=== PATIENT | male | born 1985 | race Caucasian/White ===

== ENCOUNTER 2017-03-14 20:17 | Emergency (ER) | payer MEDICARE, MEDICAID ==
[~2017-03-14] VITALS: Ht 175.3 cm; Wt 181.8 kg
[~2017-03-14 20:17] MED LIST: COUMADIN; SULF1TAB3; VIC
[2017-03-14] MEDS: KETOROLAC 60MG/2ML VIAL IM STA (21:37)
[2017-03-14 22:38] LABS: BASOPHILS % 0.7 % (0.0-2.0); EOSINOPHILS % 3.6 % (0.0-5.0); HEMATOCRIT. 42.4 % (42.0-52.0); HEMOGLOBIN. 14.2 g/dL (14.0-18.0); LYMPHOCYTES % 18.3 % (20.0-50.0); MEAN CORPUSCULAR VOLUME 83.5 fL (80.0-94.0); MEAN PLATELET VOLUME 8.1 fl (7.4-10.4); MONOCYTES % 6.9 % (2.0-8.0); NEUTROPHILS % 70.5 % (40.0-76.0); PLATELET 225 x1000/uL (130-400); RED BLOOD CELL COUNT 5.07 mill/uL (4.7-6.1)
[2017-03-14 22:42] LABS: INR 2.2; PROTHROMBIN TIME 22.7 sec
[2017-03-14 22:48] LABS: CARBON DIOXIDE 31 mEq/L (21-32); CHLORIDE 102 mEq/L (98-107)
[2017-03-14] MEDS: CEPHALEXIN 500MG CAPSULE PO ONE (23:00)
[2017-03-14 23:51] VITALS: BP 159/89
== END 2017-03-14 23:56 | disposition home or self-care (01) ==
LOC: ER 22:09
DX: L03.116 Cellulitis of left lower limb (principal); I10 Essential (primary) hypertension; E78.00 Pure hypercholesterolemia, unspecified; F12.10 Cannabis abuse, uncomplicated
CPT/HCPCS: 36415; 80053; 83605; 85025; 85610; 87040; 96372; 99284; J1885

== ENCOUNTER 2017-04-09 21:45 | Inpatient (IN) | payer MEDICAID, MEDICARE ==
[~2017-04-09] VITALS: Ht 175.3 cm; Wt 183.3 kg
[2017-04-09] MEDS ORDERED: SODIUM CHLORIDE 0.9% 1,000 ML IV ONE (23:26)
[2017-04-09] MEDS ORDERED: MORPHINE SULFATE 4 MG/ML CPJ (NOT FOR IM USE) IV STA (23:26)
[2017-04-09] MEDS ORDERED: ASPIRIN 81MG TABLET PO ONE (23:30)
[2017-04-09] MEDS ORDERED: VANCOMYCIN 1 G PREMIX 200 ML IV ONE (23:45)
[2017-04-09] MEDS ORDERED: LEVOFLOXACIN 750MG PREMIX 150 ML IV ONE (23:45)
[2017-04-10 00:33] LABS: EOSINOPHILS % 3.8 % (0.0-5.0); HEMATOCRIT. 39.5 % (42.0-52.0); HEMOGLOBIN. 13.3 g/dL (14.0-18.0); LYMPHOCYTES % 15.7 % (20.0-50.0); MEAN CORPUSCULAR HEMOGLOBIN 27.7 pg (28.0-32.0); MEAN CORPUSCULAR VOLUME 82.1 fL (80.0-94.0); MEAN PLATELET VOLUME 9.1 fl (7.4-10.4); MONOCYTES % 10.7 % (2.0-8.0); NEUTROPHILS % 68.8 % (40.0-76.0); PLATELET 161 x1000/uL (130-400); RED BLOOD CELL COUNT 4.81 mill/uL (4.7-6.1); RED CELL DISTRIBUTION WIDTH 14.6 % (11.6-14.6)
[2017-04-10 00:45] LABS: CHLORIDE 102 mEq/L (98-107)
[2017-04-10 00:56] LABS: CARBON DIOXIDE 27 mEq/L (21-32); ETHANOL BLOOD < 10 mg/dL
[2017-04-10 01:10] LABS: D-DIMER 0.6 mg/L FEU (<0.50); INR 3.8; PARTIAL THROMBOPLASTIN TIME 67.1 sec (23.4-31.0); PROTHROMBIN TIME 39.2 sec (9.4-11.6)
[2017-04-10] MEDS ORDERED: POTASSIUM BICARB/CIT ACID 25 MEQ TABLET.EFF PO ONE (02:00)
[2017-04-10] MEDS ORDERED: POTASSIUM BICARB/CIT ACID 25 MEQ TABLET.EFF PO SCH (03:15)
[2017-04-10 04:00] VITALS: BP 121/76
[2017-04-10] MEDS ORDERED: AMLO10TA80 PO (04:05)
[2017-04-10] MEDS ORDERED: LOVA40TA73 PO (04:05)
[2017-04-10] MEDS ORDERED: HYDR25TA PO (04:05)
[2017-04-10 08:00] VITALS: BP 115/58
[2017-04-10] MEDS ORDERED: ONDANSETRON HCL 4MG/2ML VIAL IV PRN (08:30)
[2017-04-10] MEDS ORDERED: ACETAMINOPHEN 325MG TABLET PO PRN (08:30)
[2017-04-10] MEDS: OMEPRAZOLE 20MG CAPSULE EXTENDED RELEASE PO SCH ×2 (09:00→20:29)
[2017-04-10] MEDS: DOCUSATE SODIUM 100MG CAPSULE PO SCH ×2 (09:00→17:00)
[2017-04-10] MEDS ORDERED: MAGNESIUM CITRATE 300ML SOLUTION PO SCH (10:00)
[2017-04-10] MEDS ORDERED: VANCOMYCIN 1500MG in DEXTROSE 5% WATER 250ML IV SCH (10:00)
[2017-04-10 10:27] LABS: BASOPHILS % 1.1 % (0.0-2.0); EOSINOPHILS % 3.1 % (0.0-5.0); HEMATOCRIT. 41.7 % (42.0-52.0); HEMOGLOBIN. 13.9 g/dL (14.0-18.0); LYMPHOCYTES % 15.3 % (20.0-50.0); MEAN CORPUSCULAR HEMOGLOBIN 27.5 pg (28.0-32.0); MEAN CORPUSCULAR VOLUME 82.8 fL (80.0-94.0); MEAN PLATELET VOLUME 8.4 fl (7.4-10.4); MONOCYTES % 6.8 % (2.0-8.0); NEUTROPHILS % 73.7 % (40.0-76.0); PLATELET 174 x1000/uL (130-400); RED BLOOD CELL COUNT 5.03 mill/uL (4.7-6.1); RED CELL DISTRIBUTION WIDTH 14.5 % (11.6-14.6)
[2017-04-10 11:00] LABS: CARBON DIOXIDE 29 mEq/L (21-32); CHLORIDE 102 mEq/L (98-107); HDL CHOLESTEROL 35 mg/dL (40-59); LDL CHOLESTEROL 72 mg/dL (5-100); PHOSPHORUS 1.6 mg/dL (2.5-4.9)
[2017-04-10 12:00] VITALS: BP 135/83
[2017-04-10 16:00] VITALS: BP 126/71
[2017-04-10 17:05] LABS: CLARITY URINE CLEAR (CLEAR); COLOR URINE YELLOW (YELLOW); GLUCOSE URINE NEGATIVE (NEGATIVE); KETONES URINE NEGATIVE (NEGATIVE); LEUKOCYTE ESTERASE URINE NEGATIVE (NEGATIVE); NITRITE URINE NEGATIVE (NEGATIVE); OCCULT BLOOD URINE NEGATIVE (NEGATIVE); PROTEIN URINE NEGATIVE (NEGATIVE); SPECIFIC GRAVITY URINE 1.021 (1.005-1.030); UROBILINOGEN URINE 0.2 E.U./dL (0.2-1.0)
[2017-04-10 17:17] LABS: *AMPHETAMINES SCREEN URINE NEGATIVE (NEGATIVE); *BARBITURATES SCREEN URINE NEGATIVE (NEGATIVE); *BENZODIAZEPINES SCREEN URINE NEGATIVE (NEGATIVE); *COCAINE SCREEN URINE NEGATIVE (NEGATIVE); CANNABINOID URINE SCREEN PRESUMTIVE POSITIVE (NEGATIVE); METHADONE URINE SCREEN NEGATIVE (NEGATIVE); OPIATES URINE SCREEN PRESUMTIVE POSITIVE (NEGATIVE); PHENCYCLIDINE URINE SCREEN NEGATIVE (NEGATIVE)
[2017-04-10] MEDS: LEVOFLOXACIN 500MG PREMIX 100 ML IV SCH (17:44)
[2017-04-10] MEDS: VANCOMYCIN 1 G PREMIX 200 ML IV SCH ×2 (17:44→21:27)
[2017-04-10 20:00] VITALS: BP 144/81
[2017-04-11] VITALS: BP 139/79
[2017-04-11] MEDS: HYDROCODONE/ACETAMINOPHEN 5/325MG TABLET PO PRN ×2 (00:01→20:48)
[2017-04-11 04:00] VITALS: BP 123/74
[2017-04-11] MEDS: VANCOMYCIN 1 G PREMIX 200 ML IV SCH ×3 (05:22→21:08)
[2017-04-11] MEDS: OMEPRAZOLE 20MG CAPSULE EXTENDED RELEASE PO SCH ×2 (06:24→20:09)
[2017-04-11 08:00] VITALS: BP 139/90
[2017-04-11] MEDS: DOCUSATE SODIUM 100MG CAPSULE PO SCH ×2 (08:38→16:47)
[2017-04-11] MEDS: HYDROCHLOROTHIAZIDE 25MG TABLET PO SCH (08:47)
[2017-04-11] MEDS: AMLODIPINE 10MG TABLET PO SCH (08:48)
[2017-04-11] MEDS: LEVOFLOXACIN 500MG PREMIX 100 ML IV SCH (11:46)
[2017-04-11 12:00] VITALS: BP 137/83
[2017-04-11 12:22] LABS: CARBON DIOXIDE 29 mEq/L (21-32); CHLORIDE 107 mEq/L (98-107); VANCOMYCIN TROUGH 16.8 ug/mL (5.0-10.0)
[2017-04-11 16:00] VITALS: BP 144/88
[2017-04-11 20:00] VITALS: BP 136/78
[2017-04-12] VITALS: BP 132/69
[2017-04-12 04:00] VITALS: BP 122/60
[2017-04-12 06:22] LABS: EOSINOPHILS % 4.1 % (0.0-5.0); HEMATOCRIT. 38.8 % (42.0-52.0); HEMOGLOBIN. 13.1 g/dL (14.0-18.0); LYMPHOCYTES % 21.3 % (20.0-50.0); MEAN CORPUSCULAR HEMOGLOBIN 27.9 pg (28.0-32.0); MEAN CORPUSCULAR VOLUME 82.7 fL (80.0-94.0); MEAN PLATELET VOLUME 8.8 fl (7.4-10.4); MONOCYTES % 11.2 % (2.0-8.0); NEUTROPHILS % 62.4 % (40.0-76.0); PLATELET 188 x1000/uL (130-400); RED BLOOD CELL COUNT 4.69 mill/uL (4.7-6.1); RED CELL DISTRIBUTION WIDTH 14.7 % (11.6-14.6)
[2017-04-12] MEDS: VANCOMYCIN 1 G PREMIX 200 ML IV SCH (06:31)
[2017-04-12] MEDS: OMEPRAZOLE 20MG CAPSULE EXTENDED RELEASE PO SCH (06:31)
[2017-04-12 06:47] LABS: CHLORIDE 104 mEq/L (98-107)
[2017-04-12 06:54] LABS: CARBON DIOXIDE 28 mEq/L (21-32); PHOSPHORUS 3.5 mg/dL (2.5-4.9)
[2017-04-12 07:53] LABS: CLARITY URINE CLEAR (CLEAR); COLOR URINE YELLOW (YELLOW); GLUCOSE URINE NEGATIVE (NEGATIVE); KETONES URINE NEGATIVE (NEGATIVE); LEUKOCYTE ESTERASE URINE NEGATIVE (NEGATIVE); NITRITE URINE NEGATIVE (NEGATIVE); OCCULT BLOOD URINE NEGATIVE (NEGATIVE); PROTEIN URINE NEGATIVE (NEGATIVE); SPECIFIC GRAVITY URINE 1.015 (1.005-1.030); UROBILINOGEN URINE 0.2 E.U./dL (0.2-1.0)
[2017-04-12 08:00] VITALS: BP 136/94
[2017-04-12] MEDS: DOCUSATE SODIUM 100MG CAPSULE PO SCH (09:00)
[2017-04-12] MEDS: HYDROCHLOROTHIAZIDE 25MG TABLET PO SCH (09:01)
[2017-04-12] MEDS: HYDROCODONE/ACETAMINOPHEN 5/325MG TABLET PO PRN (09:02)
[2017-04-12] MEDS: AMLODIPINE 10MG TABLET PO SCH (09:02)
[2017-04-12 12:00] VITALS: BP 150/89
[2017-04-12] MEDS: LEVOFLOXACIN 500MG PREMIX 100 ML IV SCH (12:12)
[2017-04-12 12:48] VITALS: BP 150/89
== END 2017-04-12 14:00 | disposition home or self-care (01) | DRG 603 ==
LOC: ER 21:45 → 6EST 04-10 01:58 → ENRESERV 04-10 02:33
PROVIDERS: ADMIT Internal Medicine; ATTEND Internal Medicine
DX: L03.116 Cellulitis of left lower limb (principal); Z68.43 Body mass index [BMI] 50.0-59.9, adult; I10 Essential (primary) hypertension; E66.01 Morbid (severe) obesity due to excess calories; I87.2 Venous insufficiency (chronic) (peripheral); L03.115 Cellulitis of right lower limb; E78.00 Pure hypercholesterolemia, unspecified; E78.5 Hyperlipidemia, unspecified; Z82.49 Family history of ischemic heart disease and other diseases of the circulatory system; Z86.718 Personal history of other venous thrombosis and embolism; Z79.1 Long term (current) use of non-steroidal anti-inflammatories (NSAID); Z79.899 Other long term (current) drug therapy
CPT/HCPCS: 36415; 71010; 80048; 80053; 80061; 80202; 80305; 81003; 83605; 83735; 83880; 84100; 84443; 84550; 85025; 85379; 85610; 85651; 85730; 87040; 87086; 93005; 93923; 93970; 96365; 96366; 96368; 96375; 97162; 97166; 99285; G0482; J1956; J2270; J3370; J7030; J7040; J7060

== ENCOUNTER 2024-04-15 15:37 | Emergency (ER) | payer MEDICARE, MEDICAID ==
[~2024-04-15] VITALS: Ht 185.4 cm; Wt 100.0 kg
[~2024-04-15 15:37] MED LIST changes: +AMLO10TA80 PO; +HYDR25TA PO; +LOVA40TA73 PO
[2024-04-15 15:47] VITALS: O2SAT 100
[2024-04-15] MEDS ORDERED: LIDOCAINE HCL 1% 20ML VIAL INFIL ONE (16:00)
[2024-04-15] MEDS: ONDANSETRON HCL 4MG/2ML INJ IM ONE (16:36)
[2024-04-15] MEDS: MORPHINE SULFATE 10 MG/ML INJ (NOT FOR IM USE) IV ONE (16:37)
[2024-04-15] MEDS: SODIUM CHLORIDE 0.9% 1,000 ML IV ONE (16:38)
[2024-04-15 16:49] LABS: CARBON DIOXIDE 25 mEq/L (21-32); CHLORIDE 106 mEq/L (98-107); POTASSIUM 3.5 mEq/L (3.5-5.1); SODIUM 138 mEq/L (136-145)
[2024-04-15 16:50] LABS: BASOPHILS % 0.9 % (0.0-2.0); EOSINOPHILS % 2.1 % (0.0-5.0); HEMATOCRIT. 40.1 % (42.0-52.0); HEMOGLOBIN. 13.5 g/dL (14.0-18.0); LYMPHOCYTES % 18.8 % (20.0-50.0); MEAN CORPUSCULAR HEMOGLOBIN 29.3 pg (28.0-32.0); MEAN CORPUSCULAR HGB CONC 33.7 g/dL (31.0-37.0); MEAN CORPUSCULAR VOLUME 87.1 fL (80.0-94.0); MEAN PLATELET VOLUME 8.4 fl (7.4-10.4); MONOCYTES % 7.3 % (2.0-8.0); NEUTROPHILS % 70.9 % (40.0-76.0); PLATELET 230 x1000/uL (130-400); RED CELL DISTRIBUTION WIDTH 14.3 % (11.6-14.6); WHITE BLOOD COUNT 8.4 x1000/uL (4.5-11.0)
[2024-04-15 16:55] LABS: CREATININE 0.9 mg/dL (0.6-1.3); GLUCOSE 97 mg/dL (70-105); UREA NITROGEN BLOOD 7 mg/dL (9-23)
[2024-04-15 16:59] LABS: INR 3.9; PARTIAL THROMBOPLASTIN TIME 64.8 sec (23.4-31.0); PROTHROMBIN TIME 39.8 sec (9.6-11.0)
[2024-04-15] MEDS: LIDOCAINE HCL 1%/EPI 1:200,000 30 ML VIAL MC ONE (17:29)
[2024-04-15 19:43] VITALS: BP 112/83; PULSE 77; RESP 14; TEMP 36.66960; O2SAT 98
== END 2024-04-15 20:09 | disposition home or self-care (01) ==
LOC: ER 15:37
DX: S81.812A Laceration without foreign body, left lower leg, initial encounter (principal); E78.00 Pure hypercholesterolemia, unspecified; I10 Essential (primary) hypertension; F12.90 Cannabis use, unspecified, uncomplicated; Z88.2 Allergy status to sulfonamides; Z88.8 Allergy status to other drugs, medicaments and biological substances
CPT/HCPCS: 99285; 96374; 96361; 80048; 85025; 85610; 85730; 86850; 86900; 86901; 36415; 12001; 96372; J3490; J2405; J2270; J7030

== ENCOUNTER 2024-05-26 15:13 | Emergency (ER) | payer MEDICARE, MEDICAID ==
[~2024-05-26] VITALS: Ht 175.3 cm; Wt 145.0 kg
[2024-05-26 15:35] VITALS: O2SAT 98
[2024-05-26 20:24] VITALS: BP 139/56; PULSE 70; RESP 15; TEMP 36.89184; O2SAT 98
== END 2024-05-26 20:28 | disposition home or self-care (01) ==
LOC: ER 15:13
DX: S81.811D Laceration without foreign body, right lower leg, subsequent encounter (principal); F12.10 Cannabis abuse, uncomplicated; I10 Essential (primary) hypertension; E78.00 Pure hypercholesterolemia, unspecified; Z48.02 Encounter for removal of sutures; Z88.2 Allergy status to sulfonamides; Z79.899 Other long term (current) drug therapy; X58.XXXD Exposure to other specified factors, subsequent encounter
CPT/HCPCS: 99281